=== PATIENT | female | born 1990 | race African-American/Black ===

== ENCOUNTER 2020-06-26 11:15 | Emergency (ER) | payer OTHER ==
[~2020-06-26] VITALS: Ht 170.2 cm; Wt 79.4 kg
[2020-06-26 11:19] VITALS: BP 115/72
--- NOTE | 2020-06-26 11:19 | NUR ---
29 Y/O FEMALE C/O VAGINAL PAIN X3HRS DESCRIBES CRAMPING 7/10 RADIATES TO LOWER BACK. PT STATES +N/V, DENIES FEVER/CHILLS. LMP 04/14/20 PT STATES SHE IS 10WEEKS . PT STATES SHE RECENTLY SAW OB FOR VAGINAL BLEEDING AND WAS REFERRED TO ER IF SHE DEVELOPED CRAMPING. [id number] DENIES PMH NKA
--- NOTE | 2020-06-26 11:22 | NUR ---
PT AMBULATED TO RESTROOM FOR UA COLLECTION.
[2020-06-26] MEDS ORDERED: DOPPLER MC ONE (11:25)
--- NOTE | 2020-06-26 11:42 | NUR ---
DOPPLER USED FOR HEART SOUNDS PER MD ORDER.
[2020-06-26 11:51] LABS: BILIRUBIN,URINE NEGATIVE (NEGATIVE); BLOOD, URINE NEGATIVE (NEGATIVE); COLOR,URINE YELLOW (YELLOW); LEUKOCYTE ESTERASE ,URINE 1+ (NEGATIVE); NITRITE, URINE NEGATIVE (NEGATIVE); PH,URINE 6.5 (5.0-9.0); UGLUCOSE NEGATIVE (NEGATIVE)
[2020-06-26] MEDS ORDERED: NITR100C7 PO (12:15)
[2020-06-26 12:24] VITALS: BP 115/72
--- NOTE | 2020-06-26 12:25 | NUR ---
Patient discharged with v/s stable. Written and verbal after care instructions given and explained. Patient alert, oriented and verbalized understanding of instructions. Ambulatory with steady gait. All questions addressed prior to discharge. ID band removed. Patient advised to follow up with PMD. Rx of MACROBID 100MG PO [id number] given. Patient educated on indication of medication including possible reaction and side effects. Opportunity to ask questions provided and answered.
[2020-06-26 12:38] LABS: APPEARANCE,URINE SLIGHTLY HAZY (CLEAR); RBC,URINE 0-5 /HPF (0-5); WBC,URINE 0-5 /HPF (0-5)
== END 2020-06-26 12:25 | disposition home or self-care (01) ==
LOC: MED 11:15
DX: O23.41 Unspecified infection of urinary tract in pregnancy, first trimester (principal); Z3A.10 10 weeks gestation of pregnancy
CPT/HCPCS: 81001; 81025; 87086; 99283